=== PATIENT | female | born 1955 | race Caucasian/White ===

== ENCOUNTER 2019-12-27 06:43 | Inpatient (IN) | payer MEDICARE, OTHER ==
[~2019-12-27] VITALS: Ht 147.3 cm; Wt 91.6 kg
[2019-12-27] VITALS (23 sets, daily range): BP systolic 105–172; BP diastolic 46–79
--- NOTE | 2019-12-27 06:57 | NUR ---
PATIENT IS COVID POSITIVE OF 12/21/2019. NO FEVER, 99.3 FAHRENHEIT. PATIENT CAME TO ER BED 5 C/O SOB FROM HOME BIBRA. PATIENT IS 76% ON ROOM AIR. AND 94% ON 6L OF N/C. PATIENT IS AAOX4. NO SOB .BREATHING WITH EVEN RISE AND FALL OF CHEST. CONNECTED TO THE MONITOR.
--- NOTE | 2019-12-27 06:59 | NUR ---
PT DAUGHTER JOSLYN MICHAUD
--- NOTE | 2019-12-27 07:20 | NUR ---
BLOOD, CULTURES, FLU, MRSA, AND SINGH VIRUS SWAB COLLECTED AND SENT TO THE LAB.
--- NOTE | 2019-12-27 07:23 | NUR ---
RESPIRATORY AND RADIOLOGY CALLED FOR SERVICES.
[2019-12-27 07:25] LABS: BASOPHILS % (AUTO) 0.3 % (0.0-2.0); HEMATOCRIT 36 % (33-45); HEMOGLOBIN 11.9 g/dL (11.5-14.8); LYMPHOCYTES % (AUTO) 15.9 % (20.0-44.0); MEAN CORPUSCULAR HGB CONC 33 g/dl (31.0-36.0); MEAN CORPUSCULAR VOLUME 85 fL (82-100); MONOCYTES # (AUTO) 0.3 /CMM (0.1-1.30); MONOCYTES % (AUTO) 4.5 % (2.0-12.0); NEUTROPHILS % (AUTO) 79.3 % (43.0-81.0); PLATELET COUNT (AUTO) 265 /CMM (150-450); RED BLOOD CELL COUNT(AUTO) 4.17 MIL/uL (4.0-5.2); WHITE BLOOD COUNT (AUTO) 6.3 K/uL (4.3-11.0)
--- NOTE | 2019-12-27 07:28 | NUR ---
XRAY AT BEDSIDE
--- NOTE | 2019-12-27 07:32 | NUR ---
REPORT GIVEN TO PAULO LOONEY FOR CAMACHO.
[2019-12-27 07:34] LABS: CALCIUM, SERUM 8.3 mg/dL (8.5-10.1); CARBON DIOXIDE 25 mmol/L (21-32); CHLORIDE 95 mmol/L (98-107); CREATININE 0.6 mg/dL (0.6-1.3); GLUCOSE 154 mg/dL (74-106); POTASSIUM 3.7 mmol/L (3.5-5.1); SODIUM SERUM 134 mmol/L (136-145); UREA NITROGEN, BLOOD 11 mg/dL (7-18)
[2019-12-27 07:43] LABS: ABG BASE EXCESS -3.6 mmol/L; ABG PH 7.453 (7.350-7.450); ABG PO2 67.8 mmHg (75.0-100.0); AaDO2 185.2 mmHg; COHb 0.5 % (0.5-1.5); MetHb 0.2 % (0.0-1.5); O2Hb 92.3 % (94.0-97.0); SITE, ABG Left Radial; VENT MODE, BG 5l nc
[2019-12-27 07:46] LABS: ALANINE AMINOTRANSFERASE 107 U/L (12-78); ALBUMIN 2.7 g/dL (3.4-5.0); ALKALINE PHOSPHATASE 45 U/L (46-116); ASPARTATE AMINOTRANSFERASE 121 U/L (15-37); B-TYPE NATRIURETIC PEPTIDE 77 PG/ML (0-125); BILIRUBIN,TOTAL 0.5 mg/dL (0.2-1.0); TOTAL PROTEIN, SERUM 7.3 g/dL (6.4-8.2)
[2019-12-27 07:50] LABS: CREATINE KINASE, TOTAL 370 U/L (26-192); FERRITIN 916 ng/mL (8-388)
[2019-12-27] MEDS ORDERED: DEXAMETHASONE SOD PHOSPHATE 10 MG/ML VIAL IV ONE (08:00)
[2019-12-27] MEDS ORDERED: ESCI10TA PO (08:03)
[2019-12-27] MEDS ORDERED: AMYL1CAP56 PO (08:03)
[2019-12-27] MEDS ORDERED: FENO160T PO (08:03)
[2019-12-27] MEDS ORDERED: METF-440 PO (08:03)
[2019-12-27] MEDS ORDERED: ACET1TAB23 MT (08:03)
[2019-12-27] MEDS ORDERED: LORA-258 PO (08:03)
[2019-12-27] MEDS ORDERED: ROSU20TA32 PO (08:03)
[2019-12-27] MEDS ORDERED: TRAM50TA2 PO (08:03)
[2019-12-27] MEDS ORDERED: ERGO500014 PO (08:03)
[2019-12-27] MEDS ORDERED: AZIT500T4 PO (08:03)
[2019-12-27] MEDS ORDERED: DEXL30CA3 PO (08:03)
[2019-12-27] MEDS ORDERED: CLON0.1T PO (08:03)
[2019-12-27] MEDS ORDERED: APIX5TAB PO (08:03)
[2019-12-27] MEDS ORDERED: ALBU18HF2 IH (08:03)
[2019-12-27] MEDS ORDERED: DULO30CA52 PO (08:03)
[2019-12-27] MEDS ORDERED: ASPI-1169 PO (08:03)
[2019-12-27] MEDS ORDERED: MAGN400T26 PO (08:03)
[2019-12-27] MEDS ORDERED: CARV6.252 PO (08:03)
[2019-12-27] MEDS ORDERED: ZINC1CAP2 PO (08:03)
[2019-12-27] MEDS ORDERED: LOSA50TA39 PO (08:03)
[2019-12-27] MEDS ORDERED: INSU100V11 SQ (08:03)
[2019-12-27] MEDS ORDERED: TIOT18CA3 IH (08:05)
[2019-12-27] MEDS ORDERED: DEXAMETHASONE SOD PHOSPHATE 10 MG/ML VIAL ONE (08:05)
[2019-12-27] MEDS ORDERED: INSU300I SQ (08:05)
[2019-12-27] MEDS ORDERED: ASPI-1420 PO (08:05)
--- NOTE | 2019-12-27 08:19 | NUR ---
EPIC CALLED PHOTOGRAPHER SCIENTIFIC PAGED ITS ANDONIAN
--- NOTE | 2019-12-27 08:27 | NUR ---
RT PT CAME IN FOR SOB PLACED ON HIGH FLOW NC PER REJI, PT KEEPS REMOVING HIGH FLOW CANNULA COMPLAINING OF THE HIGH FLOW AND TEMPERATURE PLACED ON 34C 40L 80% SP02 > 94% Addendum: 12/27/19 at 0830 by PITER WILKINSON RT Amended: Links added.
[2019-12-27 08:30] LABS: C-REACTIVE PROTEIN 23.1 mg/dL (0.0-0.9)
--- NOTE | 2019-12-27 08:44 | NUR ---
nursing supp called for icu bed.
[2019-12-27 08:54] LABS: D-DIMER 1.56 mg/L(FEU (0.17-0.50)
--- NOTE | 2019-12-27 08:57 | NUR ---
room 262
--- NOTE | 2019-12-27 09:04 | NUR ---
report given to Юлия LOONEY for gm
--- NOTE | 2019-12-27 09:51 | NUR ---
wheeled patient via gurney accompanied by RN and emt in no distress. RN at bedside to assume care.
[2019-12-27] MEDS ORDERED: DEXAMETHASONE SOD PHOSPHATE 10 MG/ML VIAL IV SCH (10:00)
[2019-12-27] MEDS ORDERED: ENOXAPARIN SODIUM 40 MG/0.4 ML DISP.SYRIN SQ SCH (10:00)
--- NOTE | 2019-12-27 10:00 | NUR ---
RN OPENING NOTE Received patient awake from ER now situated in room 262. Patient is on NC 6L o2 sat @ 91%. Noted with effort in breathing. No co chest pain. RT placed high flow standby. Patient is AO x4 Hebrew speaking understand Hungarian. Patient has L Chest wall pacemaker A pacing at 80bpm. Has LAC #20 flushes well. Vital signs within normal limits. ER administered Decadron informed pharmacy. Per patient she is diabetic. Checked blood sugar 186. Informed Dr Dooley to order mild sliding scale. Order noted and carried out. Safety measures reinforced. Call light within reach. Will cont to monitor.
[2019-12-27] MEDS: FUROSEMIDE 40 MG/4 ML VIAL IV SCH ×3 (10:16→21:04)
[2019-12-27] MEDS ORDERED: Z GUARD REMEDY 2 OZ OINT TP PRN (10:30)
[2019-12-27] MEDS ORDERED: HYDROCODONE/APAP 5/325MG TABLET PO PRN (10:30)
[2019-12-27] MEDS ORDERED: ACETAMINOPHEN W/ CODEINE#3 1 EA TABLET PO PRN (10:30)
[2019-12-27] MEDS ORDERED: CLONIDINE HCL 0.1 MG TABLET PO PRN (10:30)
[2019-12-27] MEDS ORDERED: MAG HYDROX/AL HYDROX/SIMETH 30 ML UDC PO PRN (10:30)
[2019-12-27] MEDS ORDERED: MAGNESIUM HYDROXIDE 30 ML UDC PO PRN (10:30)
[2019-12-27] MEDS ORDERED: ZOLPIDEM TARTRATE 5 MG TABLET PO PRN (10:30)
[2019-12-27] MEDS ORDERED: TRAMADOL HCL 50 MG TABLET PO PRN (10:30)
[2019-12-27] MEDS ORDERED: ALBUTEROL SULFATE INH 18 GM HFA.AER.AD IH PRN ×2 (10:30→18:00)
--- NOTE | 2019-12-27 11:00 | NUR ---
CONVALESCENT PLASMA FORM SIGNED BY DR. PELEG. JORGENSEN INFORMED ABOUT BLOOD TRANSFUSION. GAVE CONSENT TO GIVE BLOOD TRANSFUSION. CONSENT IS SIGNED AND PLACED IN CHART.
[2019-12-27] MEDS: PANTOPRAZOLE 40 MG TABLET.DR PO SCH (11:46)
[2019-12-27] MEDS ORDERED: DEXTROSE 50%-WATER 50 ML DISP.SYRIN IV PRN (12:00)
[2019-12-27] MEDS ORDERED: REMDESIVIR (INVESTIGATIONAL) 200 MG in IV NS 0.9% 210 ML IV ONE (12:00)
--- NOTE | 2019-12-27 12:00 | NUR ---
JOE CATHETER PLACED TO PATIENT FOR I&O PATIENT IS ON LASIX. PROCEDURE TOLERATED WELL.
[2019-12-27] MEDS: BLOOD SUGAR DIAGNOSTIC 1 EACH STRIP IN SCH ×3 (12:53→21:30)
[2019-12-27] MEDS ORDERED: Medication Not On Formulary EA (Lipase/Protease/Amylase (Creon Dr 12,000 Units Capsule) PO SCH (13:00)
[2019-12-27] MEDS: LIPASE/PROTEASE/AMYLASE 1 EACH CAPSULE.DR PO SCH ×2 (13:00→17:13)
--- NOTE | 2019-12-27 13:30 | NUR ---
REMDESIVIR 1ST DOSE GIVEN VIA IV TOLERATED WELL NO SIGNS OF HYPOTENSION.
[2019-12-27] MEDS: IPRATROPIUM BROMIDE 14 GM INHALER (or 12.9 GM) IH SCH ×3 (14:16→23:50)
[2019-12-27] MEDS: INSULIN REGULAR, HUMAN 100 UNIT/ML 3 ML VIAL SQ PRN ×3 (14:17→21:31)
--- NOTE | 2019-12-27 15:58 | NUR ---
RT PLACED ON NC 6L PT REMOVING HIGH FLOW INFORMED DR SEE HIGH FLOW ON STBY Addendum: 12/27/19 at 1600 by PITER WILKINSON RT Amended: Links added.
--- NOTE | 2019-12-27 16:00 | NUR ---
FAMILY JOSLYN REQUESTED TO TALK TO MD ABOUT PATIENT'S CONDITION. PAGED AND LEFT A MESSAGE TO DR. RUCKER.
[2019-12-27] MEDS: LOSARTAN POTASSIUM 50 MG TABLET PO SCH (16:55)
[2019-12-27] MEDS: APIXABAN 5 MG TABLET PO SCH (16:56)
[2019-12-27] MEDS: METFORMIN 500 MG TABLET PO SCH (16:56)
--- NOTE | 2019-12-27 17:40 | NUR ---
SBP AT 177MMHG JUST ADMINISTERED COZAAR. WILL CONT TO MONITOR.
--- NOTE | 2019-12-27 18:45 | NUR ---
RN CLOSING NOTE Patient in bed resting sitting HOB elevated. On NC 6L with humidifier o2 sat 90%. AO x4 able to communicate needs. Tele monitor reading A pacing 80s. Pritchett catheter drained 100ml. ROSANGELA Midline on TKO flushes well and LAC #20 flushed well. All due meds given. All needs met. Kept clean and comfortable. No co pain or discomort. Safety measures maintained. Call light within reach. Will endorse to overnight associate nurse for gm.
--- NOTE | 2019-12-27 19:15 | NUR ---
RECEIVED PT ON BED AWAKE WATCHING TV, A/O X 3ON O2 VIA NC @ 6L SPO2 91 % NO SOB NOTED, TELE MONITOR READS A PACING 100% HR 70'S, HAVE ROSANGELA MIDLINE PATENT AND FLUSHED, CLEAN AND DRY, JOE CATHETER DRAINING YELLOW URINE VIA GRAVITY,ON DROPLET ISOLATION FOR COVID POSITIVE, SAFETY MEASURE MAINTAINED SIDE RAILS UP X2 BED PN LOWEST POSITION AND LOCKED CALL LIGHT WITHIN REACH WILL CONT TO MONITOR
[2019-12-27] MEDS: ATORVASTATIN 40 MG TABLET PO SCH (21:03)
[2019-12-27] MEDS: CARVEDILOL 6.25 MG TABLET PO SCH (21:04)
--- NOTE | 2019-12-27 21:34 | NUR ---
PT SPO2 84% @ 6L O2 VIA NC CANNULA, OFFER HIGH FLOW BUT PT REFUSED, AGREE WITH SIMPLE MASK AT 6L ALSO SPO2 NOW AT 90% WILL CONT TO MONITOR
[2019-12-28] VITALS (34 sets, daily range): BP systolic 92–165; BP diastolic 30–99
--- NOTE | 2019-12-28 01:33 | NUR ---
CONVALESCENT PLASMA RECEIVED FROM LAB, CHECKED AND VERIFIED, START TRANSFUSION TO THE PT WITH INITIAL V/S TEMP 98.3 HR 70 RR 22 BP 116/79 PT IS AWAKE A/O X 4 SPO2 92 % WILL CONT TO MONITOR
--- NOTE | 2019-12-28 01:49 | NUR ---
CONVALESCENT PLASMA CURRENTLY TRANSFUSING WITH LATEST V/S 98.3F, 121/64 HR 70 RR 38 SPO2 92% NO SIGN AND SYMPTOMS OF TRANSFUSION REACTION
--- NOTE | 2019-12-28 03:00 | NUR ---
CONVALESCENT PLASMA STILL TRANSFUSING WITH LATEST V/S 98.2F 114/74 HR 70 SPO2 91% NO SIGN AND SYMPTOMS OF SOB OR TRANSFUSION REACTION WILL CONT TO MONITOR THE PT
--- NOTE | 2019-12-28 03:36 | NUR ---
CONVALESCENT PLASMA TRANSFUSION COMPLETED PT IS ASLEEP EASY TO WAKE UP SPO2 92% LATEST V/S 98.3F, 118/67 HR 70 RR 37, NO ANY SIGN OF SOB OR TRANSFUSION REACTION WILL CONT TO MONITOR
[2019-12-28 04:36] LABS: BASOPHILS % (AUTO) 0.7 % (0.0-2.0); HEMATOCRIT 33 % (33-45); HEMOGLOBIN 10.7 g/dL (11.5-14.8); LYMPHOCYTES # (AUTO) 0.6 /CMM (0.8-4.8); LYMPHOCYTES % (AUTO) 8.9 % (20.0-44.0); MEAN CORPUSCULAR HGB CONC 33 g/dl (31.0-36.0); MEAN CORPUSCULAR VOLUME 85 fL (82-100); MONOCYTES # (AUTO) 0.4 /CMM (0.1-1.30); MONOCYTES % (AUTO) 5.3 % (2.0-12.0); NEUTROPHILS # (AUTO) 5.7 /CMM (1.8-8.9); NEUTROPHILS % (AUTO) 85.1 % (43.0-81.0); PLATELET COUNT (AUTO) 271 /CMM (150-450); RED BLOOD CELL COUNT(AUTO) 3.83 MIL/uL (4.0-5.2); WHITE BLOOD COUNT (AUTO) 6.7 K/uL (4.3-11.0)
--- NOTE | 2019-12-28 04:45 | NUR ---
PT SPO2 GO DOWN TO 85%, INCREASE O2 VIA MASK TO 8L SPO2 NOW 91-94% WILL CONT TO MONITOR THE PT
[2019-12-28 04:48] LABS: CALCIUM, SERUM 8.2 mg/dL (8.5-10.1); CREATININE 0.7 mg/dL (0.6-1.3); MAGNESIUM 2.1 mg/dL (1.8-2.4); PHOSPHORUS 4.1 mg/dL (2.5-4.9); POTASSIUM 3.5 mmol/L (3.5-5.1)
[2019-12-28 05:05] LABS: ALBUMIN 2.6 g/dL (3.4-5.0); BILIRUBIN,DIRECT 0.2 mg/dL (0.0-0.2); BILIRUBIN,TOTAL 0.5 mg/dL (0.2-1.0)
[2019-12-28] MEDS: IPRATROPIUM BROMIDE 14 GM INHALER (or 12.9 GM) IH SCH ×3 (05:47→17:37)
--- NOTE | 2019-12-28 07:21 | NUR ---
PT ON BED AWAKE A/O X 4 NO SIGNIFICANT CHANGES ON CONDITION NOTED STILL ON A PACING 100% VIA BEDSIDE MONITOR HR 70'S ALL NEEDS ATTENDED DROPLET ISOLATION MAINTAINED SAFETY MEASURE OBSERVED BED ON LOWEST POSITION AND LOCKED SIDE RAILS UP X2 CALL LIGHT WITHIN REACH WILL ENDORSED TO AM SHIFT NURSE
[2019-12-28] MEDS ORDERED: Medication Not On Formulary EA (Dexlansoprazole (Dexilant) 30 MG) PO SCH (07:30)
--- NOTE | 2019-12-28 07:30 | NUR ---
CONSULTING SOFTWARE ENGINEER INITIAL NOTE RECEIVED PATIENT AWAKE, ALERT AND ORIENTED. SKIN WARM AND DRY TO TOUCH. PATIENT WITH SOB ON 8LPM VIA SIMPLE MASK. ON TELE MONITOR A PACING. DENIES PAIN OR DISCOMFORT AT THIS TIME. F/C PATENT AND DRAINING BY GRAVITY. HOB ELEVATED. SIDE RAILS UP AND LOCKED. BED KEPT AT LOWEST POSITION. CALL LIGHT IN REACH. WILL CONTINUE TO MONITOR.
[2019-12-28] MEDS: BLOOD SUGAR DIAGNOSTIC 1 EACH STRIP IN SCH ×4 (08:06→21:08)
[2019-12-28] MEDS: LIPASE/PROTEASE/AMYLASE 1 EACH CAPSULE.DR PO SCH ×3 (08:07→17:04)
[2019-12-28] MEDS: INSULIN REGULAR, HUMAN 100 UNIT/ML 3 ML VIAL SQ PRN ×4 (08:07→21:09)
[2019-12-28] MEDS: METFORMIN 500 MG TABLET PO SCH ×2 (08:08→17:05)
[2019-12-28] MEDS: DEXAMETHASONE SOD PHOSPHATE 10 MG/ML VIAL IV SCH (08:08)
[2019-12-28] MEDS: ZINC SULFATE 220 MG CAPSULE PO SCH (08:08)
[2019-12-28] MEDS: ESCITALOPRAM OXALATE (10 MG) 10 MG TABLET PO SCH (08:08)
[2019-12-28] MEDS: PANTOPRAZOLE 40 MG TABLET.DR PO SCH (08:08)
[2019-12-28] MEDS: ASPIRIN EC 81 MG TABLET.DR PO SCH (08:08)
[2019-12-28] MEDS: CARVEDILOL 6.25 MG TABLET PO SCH ×2 (08:08→20:57)
[2019-12-28] MEDS: MAGNESIUM OXIDE 400 MG TABLET PO SCH (08:08)
[2019-12-28] MEDS: DULOXETINE HCL 30 MG CAPSULE.DR PO SCH (08:08)
[2019-12-28] MEDS: APIXABAN 5 MG TABLET PO SCH ×2 (08:09→17:04)
[2019-12-28] MEDS: LOSARTAN POTASSIUM 50 MG TABLET PO SCH ×2 (08:09→17:00)
--- NOTE | 2019-12-28 08:15 | NUR ---
ROSE GRADING SUPERVISOR NOTE SEEN AND EXAMINED BY DR RUCKER, DAUGHTER JOSLYN GIVEN UPDATES BY DR. RUCKER
--- NOTE | 2019-12-28 08:29 | NUR ---
RAIL EXPRESS CLERK NOTE PATIENT REQUESTED FOR COUGH MEDICINE, INFORMED DR SEE, RECEIVED ORDERS FOR ROBITUSSIN DM Q6 PRN. WILL CONTINUE TO MONITOR.
--- NOTE | 2019-12-28 08:47 | NUR ---
FRENCH LECTURER NOTE PATIENT REQUESTED FOR PUREED DIET, STATED SHE HAS BAD TEETH. NOTED
[2019-12-28] MEDS ORDERED: Medication Not On Formulary EA (Fenofibrate 160 MG) PO SCH (09:00)
[2019-12-28] MEDS: GUAIFENESIN/D-METHORPHAN HB 5 ML UDC PO PRN (09:09)
[2019-12-28] MEDS: LORAZEPAM 0.5 MG TABLET PO PRN (09:09)
--- NOTE | 2019-12-28 09:33 | NUR ---
PROMOTIONS PRODUCER NOTE SPOKE WITH DAUGHTER JOSLYN, PER DAUGHTER REQUESTED MEDICAL RECORDS OF HER MOM. MEDICAL RECORDS ALETA INFORMED. SHE WILL SPEAK WITH DAUGHTER. PATIENT GAVE VERBAL CONSENT TO GIVE RECORDS TO HER DAUGHTER.
--- NOTE | 2019-12-28 11:00 | NUR ---
LEGAL AIDE NOTE PATIENT ASSISTED TO BEDSIDE COMMODE, RECOMMENDED PATIENT TO USE BEDPAN DUE TO HER RESPIRATORY STATUS. PATIENT STILL INSISTED TO USED BEDSIDE COMMODE AND HAD BOWEL MOVEMENT. PATIENT CLEANED AND ASSISTED BACK TO BED. ON 8LPM SIMPLE MASK WITH SPO2 85-88%. WILL CONTINUE TO MONITOR.
[2019-12-28] MEDS ORDERED: REMDESIVIR (INVESTIGATIONAL) 100 MG in IV NS 0.9% 230 ML IV SCH (12:00)
--- NOTE | 2019-12-28 14:30 | NUR ---
PATENT LAWYER NOTE PATIENT SIDE LYING SLEEPING, AROUSABLE, PER PATIENT, SHE WOULD LIKE REST. RECEIVED CALL FROM DAUGHTER JOSLYN AND INFORMED HER, HER MOTHER WOULD LIKE TO REST AT THIS TIME. UPDATES GIVEN.
--- NOTE | 2019-12-28 17:10 | NUR ---
LEAD CASHIER NOTE WOKE PATIENT UP FOR DINNER, PATIENT STATES SHE FEELS BETTER WITH SLEEP. PATIENT ON 6LPM O2 VIA NC. NO DISTRESS NOTED. WILL CONTINUE TO MONITOR.
--- NOTE | 2019-12-28 17:47 | NUR ---
COAL TRIMMER NOTE CONTINUITY OF CARE ENDORSED TO RN ALIYAH
--- NOTE | 2019-12-28 19:46 | NUR ---
ENTRY DRIVER OPERATOR. INITIAL ASSESSMENT. RECEIVED THE PT REST ON THE BED. AWAKE, ALERT, FOLLOW COMMANDS. AERIAL GUNNER SUPERINTENDENT SHOWING A PACING. HOB ELEVATED. IVLT UPPER ARM MID LINE. SALINE LOCK. WILL CONTINUE TO MONITOR VITALS.
[2019-12-28] MEDS: ATORVASTATIN 40 MG TABLET PO SCH (20:57)
--- NOTE | 2019-12-28 21:43 | NUR ---
agricultural engineering teacher. all meds scanned
--- NOTE | 2019-12-28 23:41 | NUR ---
agricultural equipment sales engineer, remaining same oxygen tolerated well. sat 94%, will continue to monitor
[2019-12-29] VITALS (18 sets, daily range): BP systolic 77–135; BP diastolic 46–77
--- NOTE | 2019-12-29 00:27 | NUR ---
research agricultural engineer. remaining same oxygen on. sat 93%, will continue to monitor,
--- NOTE | 2019-12-29 02:55 | NUR ---
curriculum manager. remaining same oxygen on, no new changes, will continue to monitor
[2019-12-29] MEDS: IPRATROPIUM BROMIDE 14 GM INHALER (or 12.9 GM) IH SCH ×4 (03:19→18:09)
[2019-12-29 04:31] LABS: BASOPHILS % (AUTO) 0.5 % (0.0-2.0); EOSINOPHILS % (AUTO) 0.4 % (0.0-6.0); HEMATOCRIT 32 % (33-45); HEMOGLOBIN 10.7 g/dL (11.5-14.8); LYMPHOCYTES # (AUTO) 0.6 /CMM (0.8-4.8); LYMPHOCYTES % (AUTO) 14.6 % (20.0-44.0); MEAN CORPUSCULAR HGB CONC 33 g/dl (31.0-36.0); MEAN CORPUSCULAR VOLUME 85 fL (82-100); MONOCYTES # (AUTO) 0.4 /CMM (0.1-1.30); MONOCYTES % (AUTO) 9.3 % (2.0-12.0); NEUTROPHILS # (AUTO) 2.9 /CMM (1.8-8.9); NEUTROPHILS % (AUTO) 75.2 % (43.0-81.0); PLATELET COUNT (AUTO) 312 /CMM (150-450); RED BLOOD CELL COUNT(AUTO) 3.78 MIL/uL (4.0-5.2); WHITE BLOOD COUNT (AUTO) 3.9 K/uL (4.3-11.0)
[2019-12-29 04:39] LABS: ALBUMIN 2.4 g/dL (3.4-5.0); BILIRUBIN,DIRECT 0.2 mg/dL (0.0-0.2); BILIRUBIN,TOTAL 0.5 mg/dL (0.2-1.0); CALCIUM, SERUM 8.2 mg/dL (8.5-10.1); CREATININE 0.6 mg/dL (0.6-1.3); POTASSIUM 3.7 mmol/L (3.5-5.1); TOTAL PROTEIN, SERUM 6.7 g/dL (6.4-8.2)
--- NOTE | 2019-12-29 06:47 | NUR ---
manager nicu. pt slept well during shift. no new changes. afebrile. will continue to monitor vitals.
--- NOTE | 2019-12-29 07:30 | NUR ---
SENIOR PRODUCTION PLANNER INITIAL NOTE RECEIVED PATIENT AWAKE ALERT AND ORIENTED. C/O 3/10 BACK PAIN. NO DISTRESS NOTED, ON 6LPMO2 VIA NC. SKIN WARM AND DRY TO TOUCH. ON MONITOR APACING. F/C NOTED, DRAINING BY GRAVITY. ROSANGELA MIDLINE PATENT AND INTACT. HOB ELEVATED. ISOLATION PRECAUTIONS OBSERVED. SIDE RAILS UP AND LOCKED. BED KEPT AT LOWEST POSITION. CALL LIGHT IN REACH. WILL CONTINUE TO MONITOR.
[2019-12-29] MEDS: PANTOPRAZOLE 40 MG TABLET.DR PO SCH (07:31)
[2019-12-29] MEDS: LIPASE/PROTEASE/AMYLASE 1 EACH CAPSULE.DR PO SCH ×3 (07:32→17:09)
[2019-12-29] MEDS: GUAIFENESIN/D-METHORPHAN HB 5 ML UDC PO PRN (07:32)
[2019-12-29] MEDS: BLOOD SUGAR DIAGNOSTIC 1 EACH STRIP IN SCH ×4 (07:56→21:05)
[2019-12-29] MEDS: DEXAMETHASONE SOD PHOSPHATE 10 MG/ML VIAL IV SCH (08:38)
[2019-12-29] MEDS: ZINC SULFATE 220 MG CAPSULE PO SCH (08:38)
[2019-12-29] MEDS: LORAZEPAM 0.5 MG TABLET PO PRN (08:38)
[2019-12-29] MEDS: ACETAMINOPHEN 325 MG TABLET PO PRN (08:38)
[2019-12-29] MEDS: ASPIRIN EC 81 MG TABLET.DR PO SCH (08:38)
[2019-12-29] MEDS: DULOXETINE HCL 30 MG CAPSULE.DR PO SCH (08:39)
[2019-12-29] MEDS: APIXABAN 5 MG TABLET PO SCH ×2 (08:39→17:11)
[2019-12-29] MEDS: METFORMIN 500 MG TABLET PO SCH ×2 (08:39→17:10)
[2019-12-29] MEDS: LOSARTAN POTASSIUM 50 MG TABLET PO SCH ×2 (08:40→17:10)
[2019-12-29] MEDS: MAGNESIUM OXIDE 400 MG TABLET PO SCH (08:40)
[2019-12-29] MEDS: ESCITALOPRAM OXALATE (10 MG) 10 MG TABLET PO SCH (08:40)
[2019-12-29] MEDS: CARVEDILOL 6.25 MG TABLET PO SCH ×2 (08:40→20:56)
[2019-12-29 10:43] LABS: ABG BASE EXCESS 4.1 mmol/L; ABG OXYGEN SATURATION 95.4 % (92.0-98.5); ABG PCO2 41.7 mmHg (35.0-45.0); ABG PH 7.452 (7.350-7.450); ABG PO2 77.5 mmHg (75.0-100.0); AaDO2 188.7 mmHg; COHb 0.3 % (0.5-1.5); MetHb 0.3 % (0.0-1.5); O2Hb 94.8 % (94.0-97.0); SITE, ABG Left Brachial; VENT MODE, BG nasal cannula
[2019-12-29] MEDS: INSULIN REGULAR, HUMAN 100 UNIT/ML 3 ML VIAL SQ PRN ×3 (12:07→21:24)
[2019-12-29] MEDS: ONDANSETRON HCL/PF 4 MG/2 ML VIAL IVP PRN (12:16)
--- NOTE | 2019-12-29 16:40 | NUR ---
RECEIVED PATIENT VIA GURNEY ON 6 L OF NASAL CANNULA WITH NO SIGNS OF DISTRESS, NO COMPLAIN OF PAIN AT THIS MOMENT VITAL SIGNS WITHIN NORMAL LIMIT AND AFEBRILE. MID LINE L UA INTACT. JOE CATH INTACT. TELE MONITOR. ORIENTED PATIENT TO HER ROOM. SAFETY MEASURES ARE APPLIED BED IS IN LOW AND LOCKED POSITION, SIDE RAILS UP X 2. CALL LIGHT WITHIN REACH, WILL CONTINUE TO MONITOR.
--- NOTE | 2019-12-29 16:44 | NUR ---
ICU NR NOTE PATIENT TRANSFERRED TO ROOM 205 ACLS PROTOCOL. ALL BELONGINGS WITH PATIENT. REPORT GIVEN TO AURE BROWNE.
--- NOTE | 2019-12-29 19:33 | NUR ---
ADDICTION SPECIALIST CLOSING NOTES PATIENT A/O X 4 ON 6L OF HUMIDIFIER NASAL CANNULA WITH NO SIGNS OF DISTRESS, NO COMPLAIN OF PAIN AT THIS MOMENT. MID LINE L UA INTACT. JOE CATH INTACT. TELE MONITOR SR 70. PATIENT KEPT CLEAN AND DRY. ALL NEEDS, CARE, TREATMENT AND MEDICATIONS ADMINISTERED ANTICIPATED PER ORDER. SAFETY MEASURES ARE APPLIED BED IS IN LOW AND LOCKED POSITION, SIDE RAILS UP X 2. CALL LIGHT WITHIN REACH, WILL ENDORSE TO THE NEXT ETCHER APPRENTICE.
--- NOTE | 2019-12-29 20:00 | NUR ---
TELE/RN OPENING NOTE Patient awake in bed A/O x4, bedrest. Breathing even, mild laboring , on NC 6 LPM humidifer. No acute distress noted. Tele monitor reading sinus rhythm. Skin warm, pink, dry, intact, appropriate for ethnicity. CRP <3seconds. Tongue midline, no tracheal deviation. No JVD. Abdomen round, soft, non-tender. BS hypoactive. Pritchett catheter in place, intact, draining clear, yellow urine. IV ROSANGELA midline, patent intact. No redness or infiltration. Bed in low position, wheels locked, side rails up x2, call light within reach.
[2019-12-29] MEDS: ATORVASTATIN 40 MG TABLET PO SCH (21:04)
[2019-12-30] VITALS: BP 137/78
[2019-12-30] MEDS: IPRATROPIUM BROMIDE 14 GM INHALER (or 12.9 GM) IH SCH ×5 (00:18→23:50)
[2019-12-30 05:30] VITALS: BP 111/71
--- NOTE | 2019-12-30 06:03 | NUR ---
TELE/RN CLOSING NOTE Patient awake in bed A/O x4, bedrest. Breathing even, mild laboring , on NC 6 LPM humidifer. No acute distress noted. Tele monitor reading sinus rhythm. Pritchett catheter in place, intact, draining clear, yellow urine, 1200 ml. No bowel movement. IV ROSANGELA midline, patent intact. No redness or infiltration. Bed in low position, wheels locked, side rails up x2, call light within reach.
[2019-12-30 06:19] LABS: BASOPHILS # (AUTO) 0.1 /CMM (0.0-0.2); BASOPHILS % (AUTO) 1.4 % (0.0-2.0); EOSINOPHILS % (AUTO) 1.2 % (0.0-6.0); HEMATOCRIT 34 % (33-45); HEMOGLOBIN 11.5 g/dL (11.5-14.8); LYMPHOCYTES # (AUTO) 0.8 /CMM (0.8-4.8); LYMPHOCYTES % (AUTO) 15.8 % (20.0-44.0); MEAN CORPUSCULAR HGB CONC 34 g/dl (31.0-36.0); MEAN CORPUSCULAR VOLUME 85 fL (82-100); MONOCYTES # (AUTO) 0.5 /CMM (0.1-1.30); MONOCYTES % (AUTO) 10.1 % (2.0-12.0); NEUTROPHILS # (AUTO) 3.6 /CMM (1.8-8.9); NEUTROPHILS % (AUTO) 71.5 % (43.0-81.0); PLATELET COUNT (AUTO) 365 /CMM (150-450); RED BLOOD CELL COUNT(AUTO) 4.05 MIL/uL (4.0-5.2); WHITE BLOOD COUNT (AUTO) 5.1 K/uL (4.3-11.0)
[2019-12-30] MEDS: INSULIN REGULAR, HUMAN 100 UNIT/ML 3 ML VIAL SQ PRN ×4 (06:32→22:11)
[2019-12-30] MEDS: BLOOD SUGAR DIAGNOSTIC 1 EACH STRIP IN SCH ×4 (06:32→22:13)
[2019-12-30] MEDS: PANTOPRAZOLE 40 MG TABLET.DR PO SCH (06:33)
[2019-12-30 06:49] LABS: ALBUMIN 2.5 g/dL (3.4-5.0); BILIRUBIN,DIRECT 0.2 mg/dL (0.0-0.2); BILIRUBIN,TOTAL 0.5 mg/dL (0.2-1.0); CALCIUM, SERUM 8.6 mg/dL (8.5-10.1); CREATININE 0.8 mg/dL (0.6-1.3); POTASSIUM 3.7 mmol/L (3.5-5.1); TOTAL PROTEIN, SERUM 6.8 g/dL (6.4-8.2)
--- NOTE | 2019-12-30 07:00 | NUR ---
PNEUMATIC TESTER OPENING NOTES RECEIVED PT AWAKE IN BED AT THIS TIME. AOX4. PT ABLE TO VERBALIZE NEEDS. NO SOB NOTED, NO S/S OF ANY ACUTE DISTRESS NOTED. NO C/O PAIN AT THIS TIME. RESPIRATIONS ARE EVEN AND UNLABORED WITH EQUAL RISE AND FALL IN CHEST. PT NOTED ON 4LPM OXYGEN VIA NC. ROSANGELA MIDLINE, INTACT, PATENT AND FLUSHING WELL. JOE CATHETER IN PLACE, DRAINING TO GRAVITY, CLEAR YELLOW URINE OUTPUT. SAFETY PRECAUTION IN PLACE AND MAINTAINED AT ALL TIMES. BED IN LOWEST LOCKED POSITION, HOB ELEVATED, SIDE RAILS UP X 2, CALL LIGHT WITHIN REACH. WILL CONTINUE TO MONITOR
[2019-12-30] MEDS: LIPASE/PROTEASE/AMYLASE 1 EACH CAPSULE.DR PO SCH ×3 (07:50→17:33)
[2019-12-30 08:00] VITALS: BP 123/77
[2019-12-30] MEDS: CARVEDILOL 6.25 MG TABLET PO SCH ×2 (08:33→22:13)
[2019-12-30] MEDS: ASPIRIN EC 81 MG TABLET.DR PO SCH (08:33)
[2019-12-30] MEDS: ZINC SULFATE 220 MG CAPSULE PO SCH (08:33)
[2019-12-30] MEDS: DULOXETINE HCL 30 MG CAPSULE.DR PO SCH (08:33)
[2019-12-30] MEDS: MAGNESIUM OXIDE 400 MG TABLET PO SCH (08:33)
[2019-12-30] MEDS: LOSARTAN POTASSIUM 50 MG TABLET PO SCH ×2 (08:34→16:36)
[2019-12-30] MEDS: METFORMIN 500 MG TABLET PO SCH ×2 (08:34→16:36)
[2019-12-30] MEDS: ESCITALOPRAM OXALATE (10 MG) 10 MG TABLET PO SCH (08:34)
[2019-12-30] MEDS: DEXAMETHASONE SOD PHOSPHATE 10 MG/ML VIAL IV SCH (08:35)
[2019-12-30] MEDS: ACETAMINOPHEN 325 MG TABLET PO PRN (08:37)
--- NOTE | 2019-12-30 08:40 | NUR ---
PT C/O ACHING LEFT ABDOMINAL PAIN OF 3/. VS WNL. PER PT REQUEST, ACETAMINOPHEN 650MG PO Q6HR PRN FOR MILD PAIN WAS ADMINISTERED AT THIS TIME. WILL CONTINUE TO MONITOR
[2019-12-30] MEDS: APIXABAN 5 MG TABLET PO SCH ×2 (08:54→16:36)
--- NOTE | 2019-12-30 10:20 | NUR ---
JOSLYN, PT's DAUGHTER ([phone]) CALLED AND WAS UPDATED. JOSLYN REQUESTED FOR DOCTOR TO GET BACK TO HER. DOCTOR RUCKER MADE AWARE. WILL CONTINUE TO MONITOR
--- NOTE | 2019-12-30 18:57 | NUR ---
FORESTRY EXTENSION SPECIALIST CLOSING NOTES PT AWAKE IN BED AT THIS. PT REMAINED STABLE THROUGHOUT SHIFT. PT KEPT CLEAN AND DRY. ALL CARE, NEEDS, MEDICATIONS, TREATMENT, AND PAIN MANAGEMENT ADMINISTERED ANTICIPATED PER ORDER. JOE CATHETER CARE PROVIDER. SAFETY PRECAUTION IN PLACE AND MAINTAINED AT ALL TIMES. BED IN LOWEST LOCKED POSITION, HOB ELEVATED, SIDE RAILS UP X 2, CALL LIGHT WITHIN REACH.
--- NOTE | 2019-12-30 19:10 | NUR ---
HEALTH AND WELLNESS DIRECTOR OPENING NOTES: RECEIVED PATIENT IN BED, AWAKE. A/O X4. NO S/S OF DISTRESS NOTED. NO COMPLAIN OF PAIN. HOB ELEVATED AT ALL TIMES. CALL LIGHT WITHIN REACH. BED ALARM ON. BED IN LOWEST AND LOCKED POSITION. WITH SCD'S ON BOTH LEGS ON. WITH JOE CATHETER INTACT, DRAINING A CLEAR YELLOW URINE OUTPUT. PATIENT'S OWN CANE AT THE BEDSIDE.
--- NOTE | 2019-12-30 19:21 | NUR ---
ENDORSED TP TIME STUDY OBSERVER NURSE FOR CAMACHO
[2019-12-30 20:00] VITALS: BP 113/63
[2019-12-30] MEDS: ATORVASTATIN 40 MG TABLET PO SCH (22:12)
[2019-12-31] VITALS: BP 131/68
[2019-12-31 04:00] VITALS: BP 114/60
[2019-12-31 06:15] LABS: BASOPHILS % (AUTO) 0.3 % (0.0-2.0); EOSINOPHILS % (AUTO) 1.9 % (0.0-6.0); HEMATOCRIT 35 % (33-45); HEMOGLOBIN 11.6 g/dL (11.5-14.8); LYMPHOCYTES # (AUTO) 1.3 /CMM (0.8-4.8); LYMPHOCYTES % (AUTO) 24.1 % (20.0-44.0); MEAN CORPUSCULAR HGB CONC 33 g/dl (31.0-36.0); MEAN CORPUSCULAR VOLUME 85 fL (82-100); MONOCYTES # (AUTO) 0.5 /CMM (0.1-1.30); MONOCYTES % (AUTO) 10.3 % (2.0-12.0); NEUTROPHILS # (AUTO) 3.3 /CMM (1.8-8.9); NEUTROPHILS % (AUTO) 63.4 % (43.0-81.0); PLATELET COUNT (AUTO) 372 /CMM (150-450); RED BLOOD CELL COUNT(AUTO) 4.15 MIL/uL (4.0-5.2); WHITE BLOOD COUNT (AUTO) 5.2 K/uL (4.3-11.0)
[2019-12-31 06:40] LABS: ALBUMIN 2.5 g/dL (3.4-5.0); BILIRUBIN,DIRECT 0.2 mg/dL (0.0-0.2); BILIRUBIN,TOTAL 0.5 mg/dL (0.2-1.0); CALCIUM, SERUM 8.5 mg/dL (8.5-10.1); CREATININE 0.7 mg/dL (0.6-1.3); POTASSIUM 3.7 mmol/L (3.5-5.1); TOTAL PROTEIN, SERUM 6.7 g/dL (6.4-8.2)
[2019-12-31] MEDS: IPRATROPIUM BROMIDE 14 GM INHALER (or 12.9 GM) IH SCH ×3 (06:52→18:00)
[2019-12-31] MEDS: INSULIN REGULAR, HUMAN 100 UNIT/ML 3 ML VIAL SQ PRN ×4 (07:10→21:37)
[2019-12-31] MEDS: BLOOD SUGAR DIAGNOSTIC 1 EACH STRIP IN SCH ×4 (07:10→21:37)
--- NOTE | 2019-12-31 07:11 | NUR ---
blood sugar [id number], no insulin given.
--- NOTE | 2019-12-31 07:40 | NUR ---
Patient is awake alert and oriented . On 4 L oxygen tolerating well . Patient is ambulatory with assistance. Patient denies any pain, SOB or difficulty breathing. Safety precautions observed and call light within reach. Will continue to monitor
[2019-12-31 08:00] VITALS: BP 124/72
[2019-12-31] MEDS: PANTOPRAZOLE 40 MG TABLET.DR PO SCH (08:51)
[2019-12-31] MEDS: CARVEDILOL 6.25 MG TABLET PO SCH ×2 (08:51→21:22)
[2019-12-31] MEDS: ASPIRIN EC 81 MG TABLET.DR PO SCH (08:51)
[2019-12-31] MEDS: DEXAMETHASONE SOD PHOSPHATE 10 MG/ML VIAL IV SCH (08:51)
[2019-12-31] MEDS: DULOXETINE HCL 30 MG CAPSULE.DR PO SCH (08:51)
[2019-12-31] MEDS: METFORMIN 500 MG TABLET PO SCH ×2 (08:51→17:04)
[2019-12-31] MEDS: LIPASE/PROTEASE/AMYLASE 1 EACH CAPSULE.DR PO SCH ×3 (08:52→17:05)
[2019-12-31] MEDS: ZINC SULFATE 220 MG CAPSULE PO SCH (08:52)
[2019-12-31] MEDS: LOSARTAN POTASSIUM 50 MG TABLET PO SCH ×2 (08:52→17:04)
[2019-12-31] MEDS: ESCITALOPRAM OXALATE (10 MG) 10 MG TABLET PO SCH (08:52)
[2019-12-31] MEDS: MAGNESIUM OXIDE 400 MG TABLET PO SCH (08:52)
[2019-12-31] MEDS: APIXABAN 5 MG TABLET PO SCH ×2 (09:00→17:06)
[2019-12-31 12:00] VITALS: BP 130/65
--- NOTE | 2019-12-31 12:30 | NUR ---
Spoke with pt's daughter ; updated with plan of care. Verbalized understanding
--- NOTE | 2019-12-31 18:35 | NUR ---
Patient is resting in bed. Alert and orientedx3 , able to ambulate with assistance. F/C in place draining yellow clear urine. Oxygen flow decreased to 2L and patient tolerated well, saturation above 95%.Patient denies pain, SOB or other discomfort but complains of weakness. Pt slept most of the day. On Tele A-pacing 70-80's.ROSANGELA intact , flushing well. All needs attended. Safety precautions in place. Will endorse to next shift for CAMACHO
--- NOTE | 2019-12-31 19:36 | NUR ---
BREAD DOUGH MIXER OPENING NOTES PATIENT AWAKE IN BED. A/OX4, PRIMARY LANGUAGE [place] ISLANDER, ABLE TO SPEAK/UNDERSTAND A LITTLE ITALIAN. ON 2L NC; NO S/S OF ACUTE RESPIRATORY DISTRESS; BREATHING IS EVEN AND UNLABORED. NO C/O PAIN AT THIS TIME. TELE MONITOR READING A-PACING, HEART RATE 70. MIDLINE PRESENT ON LEFT UPPER ARM, INTACT & PATENT, HEP LOCKED AT THIS TIME. CONTACT/DROPLET PRECAUTIONS IN PLACE FOR POSITIVE COVID 19. SAFETY MEASURES IN PLACE AND PATIENT'S NEEDS MET. BED LOCKED, HOB ELEVATED, SIDE RAILS X2, CALL LIGHT WITHIN REACH. WILL CONTINUE TO MONITOR.
[2019-12-31 20:45] VITALS: BP 128/73
[2019-12-31 20:46] VITALS: BP 128/73
[2019-12-31] MEDS: ATORVASTATIN 40 MG TABLET PO SCH (21:21)
--- NOTE | 2019-12-31 21:38 | NUR ---
POWER WOOD SAWYER NOTES PATIENT'S BLOOD GLUCOSE 174. PATIENT REFUSED 3 UNITS OF REGULAR INSULIN COVERAGE.
[2020-01-01] VITALS (8 sets, daily range): BP systolic 119–137; BP diastolic 59–77
[2020-01-01] MEDS: IPRATROPIUM BROMIDE 14 GM INHALER (or 12.9 GM) IH SCH ×4 (00:36→17:11)
[2020-01-01 06:29] LABS: BASOPHILS % (AUTO) 0.6 % (0.0-2.0); EOSINOPHILS % (AUTO) 2.3 % (0.0-6.0); HEMATOCRIT 36 % (33-45); HEMOGLOBIN 11.7 g/dL (11.5-14.8); LYMPHOCYTES # (AUTO) 1.2 /CMM (0.8-4.8); LYMPHOCYTES % (AUTO) 20.6 % (20.0-44.0); MEAN CORPUSCULAR HGB CONC 33 g/dl (31.0-36.0); MEAN CORPUSCULAR VOLUME 85 fL (82-100); MONOCYTES # (AUTO) 0.5 /CMM (0.1-1.30); MONOCYTES % (AUTO) 8.3 % (2.0-12.0); NEUTROPHILS # (AUTO) 4.1 /CMM (1.8-8.9); NEUTROPHILS % (AUTO) 68.2 % (43.0-81.0); PLATELET COUNT (AUTO) 391 /CMM (150-450); RED BLOOD CELL COUNT(AUTO) 4.17 MIL/uL (4.0-5.2)
[2020-01-01] MEDS: BLOOD SUGAR DIAGNOSTIC 1 EACH STRIP IN SCH ×4 (06:30→21:29)
[2020-01-01] MEDS: INSULIN REGULAR, HUMAN 100 UNIT/ML 3 ML VIAL SQ PRN ×4 (06:31→21:29)
--- NOTE | 2020-01-01 06:32 | NUR ---
COUPON CLERK CLOSING NOTES PATIENT'S BLOOD GLUCOSE 154. PATIENT REFUSED 2 UNITS OF REGULAR INSULIN COVERAGE
--- NOTE | 2020-01-01 06:33 | NUR ---
TRANSVERSE ABDOMINAL MUSCLE SURGEON CLOSING NOTES PATIENT SLEEPING, EASY TO AWAKEN. A/OX4. ON 2L NC; NO S/S OF ACUTE RESPIRATORY DISTRESS; BREATHING IS EVEN AND UNLABORED. NO S/S OF PAIN NOTED. TELE MONITOR READING NSR WITH A-PACING, HEART RATE 70. MIDLINE PRESENT ON LEFT UPPER ARM, INTACT & PATENT, HEP LOCKED AT THIS TIME. SAFETY MEASURES IN PLACE AND PATIENT'S NEEDS MET. BED LOCKED, HOB ELEVATED, SIDE RAILS X2, CALL LIGHT WITHIN REACH. WILL ENDORSE TO DAY SHIFT RN PLAN OF CARE.
[2020-01-01 06:49] LABS: ALBUMIN 2.7 g/dL (3.4-5.0); BILIRUBIN,DIRECT 0.2 mg/dL (0.0-0.2); BILIRUBIN,TOTAL 0.5 mg/dL (0.2-1.0); CALCIUM, SERUM 8.5 mg/dL (8.5-10.1); CREATININE 0.6 mg/dL (0.6-1.3); POTASSIUM 3.8 mmol/L (3.5-5.1); TOTAL PROTEIN, SERUM 6.8 g/dL (6.4-8.2)
--- NOTE | 2020-01-01 07:46 | NUR ---
CLAMPER OPEN NOTES PATIENT A/O X 4 ON 2L OF HUMIDIFIER NASAL CANNULA WITH NO SIGNS OF DISTRESS, NO COMPLAIN OF PAIN AT THIS MOMENT. MID LINE L UA INTACT. JOE CATH INTACT. TELE MONITOR NSR WITH A-PACING 70'S. NO COMPLAIN OF PAIN AT THIS MOMENT. SAFETY MEASURES ARE BEING APPLIED, BED IS IN LOW AND LOCKED POSITION, SIDE RAILS UP X 2, CALL LIGHT WITHIN REACH. WILL CONTINUE TO MONITOR.
[2020-01-01] MEDS: MAGNESIUM OXIDE 400 MG TABLET PO SCH (08:35)
[2020-01-01] MEDS: ZINC SULFATE 220 MG CAPSULE PO SCH (08:35)
[2020-01-01] MEDS: METFORMIN 500 MG TABLET PO SCH ×2 (08:35→17:04)
[2020-01-01] MEDS: LIPASE/PROTEASE/AMYLASE 1 EACH CAPSULE.DR PO SCH ×3 (08:35→17:04)
[2020-01-01] MEDS: DULOXETINE HCL 30 MG CAPSULE.DR PO SCH (08:35)
[2020-01-01] MEDS: CARVEDILOL 6.25 MG TABLET PO SCH ×2 (08:36→21:14)
[2020-01-01] MEDS: LOSARTAN POTASSIUM 50 MG TABLET PO SCH ×2 (08:36→17:05)
[2020-01-01] MEDS: ESCITALOPRAM OXALATE (10 MG) 10 MG TABLET PO SCH (08:36)
[2020-01-01] MEDS: DEXAMETHASONE SOD PHOSPHATE 10 MG/ML VIAL IV SCH (08:37)
[2020-01-01] MEDS: APIXABAN 5 MG TABLET PO SCH ×2 (08:38→17:11)
[2020-01-01] MEDS: ASPIRIN EC 81 MG TABLET.DR PO SCH (08:39)
[2020-01-01] MEDS: PANTOPRAZOLE 40 MG TABLET.DR PO SCH (08:40)
[2020-01-01] MEDS: ONDANSETRON HCL/PF 4 MG/2 ML VIAL IVP PRN (12:09)
--- NOTE | 2020-01-01 18:48 | NUR ---
IP COUNSEL CLOSING NOTES PATIENT A/O X 4 ON 1L OF HUMIDIFIER NASAL CANNULA SPO2 94%, WITH NO SIGNS OF DISTRESS, NO COMPLAIN OF PAIN AT THIS MOMENT. MID LINE L UA INTACT. JOE CATH INTACT. TELE MONITOR SR 70. PATIENT KEPT CLEAN AND DRY. ALL NEEDS, CARE, TREATMENT AND MEDICATIONS ADMINISTERED ANTICIPATED PER ORDER. SAFETY MEASURES ARE APPLIED BED IS IN LOW AND LOCKED POSITION, SIDE RAILS UP X 2. CALL LIGHT WITHIN REACH, WILL ENDORSE TO THE NEXT STRAND AND BINDER CONTROLLER. Addendum: 01/01/20 at 1900 by IDALMIS PETERSEN RN IP COUNSEL CLOSING NOTES PATIENT A/O X 4 ON 1L OF HUMIDIFIER NASAL CANNULA SPO2 94%, WITH NO SIGNS OF DISTRESS, NO COMPLAIN OF PAIN AT THIS MOMENT. MID LINE L UA INTACT. JOE CATH INTACT. TELE MONITOR ATRIAL PACING SR 70. PATIENT KEPT CLEAN AND DRY. ALL NEEDS, CARE, TREATMENT AND MEDICATIONS ADMINISTERED ANTICIPATED PER ORDER. SAFETY MEASURES ARE APPLIED BED IS IN LOW AND LOCKED POSITION, SIDE RAILS UP X 2. CALL LIGHT WITHIN REACH, WILL ENDORSE TO THE NEXT STRAND AND BINDER CONTROLLER.
--- NOTE | 2020-01-01 19:00 | NUR ---
TONGUE TRIMMER OPENING NOTES RECEIVED PATIENT IN BED AWAKE ALERT AND ORIENTED X4,ON 1L VIA NC TOLERATING WELL, NO RESPIRATORY DISTRESS PRESENT, RESPIRATIONS EVEN AND UNLABORED WITH EQUAL RISE AND FALL OF CHEST, DENIES ANY PAIN AT THIS TIME, JOE CATHETER INTACT AND DRAINING WELL URINE YELLOW, BODY ASSESSMENT DONE SKIN INTACT, ON CARIDAC MONITOR ATRIAL PACING 70. LEFT UPPER MIDLINE INTACT AND PATENT, NO REDNESS, NO INFILTRATION , DRESSING IS C/D/I.ORIENTED TO STAFF AND CALL LIGHT AND KEPT WITHIN REACH.LOW BED AND LOCKED, ALL NEEDS ATTENDED WILL CONTINUE TO MONITOR AND ATTEND TO NEEDS.
[2020-01-01] MEDS: ATORVASTATIN 40 MG TABLET PO SCH (21:14)
[2020-01-01] MEDS: GUAIFENESIN/D-METHORPHAN HB 5 ML UDC PO PRN (21:14)
--- NOTE | 2020-01-01 21:14 | NUR ---
vehicle return associate notes noted patient with non productive cough, offered cough medicine robitussin prn patient agreed prn given will continue to monitor for effectiveness.
[2020-01-02] MEDS: IPRATROPIUM BROMIDE 14 GM INHALER (or 12.9 GM) IH SCH ×4 (00:05→17:12)
[2020-01-02 00:37] VITALS: BP 160/86
[2020-01-02 04:00] VITALS: BP 110/59
[2020-01-02 04:58] VITALS: BP 110/59
[2020-01-02] MEDS: BLOOD SUGAR DIAGNOSTIC 1 EACH STRIP IN SCH ×4 (06:13→21:32)
[2020-01-02] MEDS: INSULIN REGULAR, HUMAN 100 UNIT/ML 3 ML VIAL SQ PRN ×4 (06:13→21:34)
--- NOTE | 2020-01-02 06:51 | NUR ---
WINDOW SHADE ESTIMATOR CLOSING NOTES PATIENT IN BED AWAKE ALERT AND ORIENTED X4,ON 1L VIA NC TOLERATING WELL, NO RESPIRATORY DISTRESS PRESENT, RESPIRATIONS EVEN AND UNLABORED WITH EQUAL RISE AND FALL OF CHEST, DENIES ANY PAIN AT THIS TIME, JOE CATHETER INTACT AND DRAINING WELL URINE YELLOW, BODY ASSESSMENT DONE SKIN INTACT, ON CARIDAC MONITOR ATRIAL PACING 72. LEFT UPPER MIDLINE INTACT AND PATENT, NO REDNESS, NO INFILTRATION , DRESSING IS C/D/I. CALL LIGHT KEPT WITHIN REACH.LOW BED AND LOCKED, ALL NEEDS ATTENDED WILL CONTINUE TO MONITOR AND ATTEND TO NEEDS AND ENDORSE TO NEXT SHIFT, PATIENT REFUSED INSULIN PER SLIDING SCALE DESPITE EDUCATION.
--- NOTE | 2020-01-02 07:43 | NUR ---
RN OPENING NOTES RECEIVED PATIENT IN BED AWAKE ALERT AND ORIENTED X4,ON 1L VIA NC TOLERATING WELL, NO RESPIRATORY DISTRESS PRESENT, RESPIRATIONS EVEN AND UNLABORED . DENIES ANY PAIN AT THIS TIME, JOE CATHETER INTACT AND DRAINING WELL ON CARIDAC MONITOR ATRIAL PACING 72. LEFT UPPER MIDLINE INTACT AND PATENT, NO REDNESS, NO INFILTRATION , DRESSING IS C/D/I. CALL LIGHT KEPT WITHIN REACH.LOW BED AND LOCKED, ALL NEEDS ATTENDED WILL CONTINUE TO MONITOR AND SAFETY PRECAUTIONS IN PLACE. BED LOCKED AND IN LOS POSITION SIDE RAILS UP X2. BED ALARM ON. CALL LIGHT WITHIN REACH.
[2020-01-02 07:49] LABS: BASOPHILS % (AUTO) 0.4 % (0.0-2.0); EOSINOPHILS % (AUTO) 2.4 % (0.0-6.0); HEMATOCRIT 36 % (33-45); HEMOGLOBIN 11.9 g/dL (11.5-14.8); LYMPHOCYTES # (AUTO) 1.3 /CMM (0.8-4.8); LYMPHOCYTES % (AUTO) 19.7 % (20.0-44.0); MEAN CORPUSCULAR HGB CONC 33 g/dl (31.0-36.0); MEAN CORPUSCULAR VOLUME 86 fL (82-100); MONOCYTES # (AUTO) 0.6 /CMM (0.1-1.30); NEUTROPHILS # (AUTO) 4.5 /CMM (1.8-8.9); NEUTROPHILS % (AUTO) 68.5 % (43.0-81.0); PLATELET COUNT (AUTO) 408 /CMM (150-450); RED BLOOD CELL COUNT(AUTO) 4.22 MIL/uL (4.0-5.2); WHITE BLOOD COUNT (AUTO) 6.6 K/uL (4.3-11.0)
[2020-01-02 08:00] VITALS: BP 109/68
[2020-01-02 08:03] LABS: CALCIUM, SERUM 8.8 mg/dL (8.5-10.1); CREATININE 0.6 mg/dL (0.6-1.3); POTASSIUM 3.9 mmol/L (3.5-5.1)
[2020-01-02] MEDS: METFORMIN 500 MG TABLET PO SCH ×2 (08:23→16:10)
[2020-01-02] MEDS: PANTOPRAZOLE 40 MG TABLET.DR PO SCH (08:23)
[2020-01-02] MEDS: ZINC SULFATE 220 MG CAPSULE PO SCH (08:23)
[2020-01-02] MEDS: MAGNESIUM OXIDE 400 MG TABLET PO SCH (08:23)
[2020-01-02] MEDS: ESCITALOPRAM OXALATE (10 MG) 10 MG TABLET PO SCH (08:23)
[2020-01-02] MEDS: LIPASE/PROTEASE/AMYLASE 1 EACH CAPSULE.DR PO SCH ×3 (08:23→17:09)
[2020-01-02] MEDS: ASPIRIN EC 81 MG TABLET.DR PO SCH (08:23)
[2020-01-02] MEDS: DEXAMETHASONE SOD PHOSPHATE 10 MG/ML VIAL IV SCH (08:23)
[2020-01-02] MEDS: APIXABAN 5 MG TABLET PO SCH ×2 (08:24→16:11)
[2020-01-02] MEDS: CARVEDILOL 6.25 MG TABLET PO SCH ×2 (08:24→21:22)
[2020-01-02] MEDS: LOSARTAN POTASSIUM 50 MG TABLET PO SCH ×2 (08:25→16:10)
[2020-01-02] MEDS: DULOXETINE HCL 30 MG CAPSULE.DR PO SCH (08:30)
[2020-01-02] MEDS ORDERED: ERGOCALCIFEROL (VITAMIN D 2) 50,000 UNIT CAPSULE PO SCH (09:00)
--- NOTE | 2020-01-02 10:30 | NUR ---
PT WAS TITRATED OFF O2. PT SATURATING AT 94-95% ON ROOM AIR.
--- NOTE | 2020-01-02 12:47 | NUR ---
JOE CATH REMOVED PER DR. RUCKER ORDERS. WILL MONITOR FOR URINE OUTPUT.
[2020-01-02 16:00] VITALS: BP 127/56
--- NOTE | 2020-01-02 17:46 | NUR ---
PT VOIDED ALREADY 5X TODAY SINCE JOE WAS DISCONTINUED AT 1247. PT WAS ALSO AMBULATING TO THE BATHROOM WITH THE CANE.
--- NOTE | 2020-01-02 19:28 | NUR ---
RN CLOSING NOTES RECEIVED PATIENT IN BED AWAKE ALERT AND ORIENTED X4, NO RESPIRATORY DISTRESS PRESENT, RESPIRATIONS EVEN AND UNLABORED . SATURATING WELL ON ROOM AIR. DENIES ANY PAIN AT THIS TIME, CONTINENT OF B/B. PT WAS VOIDINGTHROUGHOUT THE DAY AFTER JOE CATH WAS DISCONTINUED. CARIDAC MONITOR ATRIAL PACING 72. LEFT UPPER MIDLINE INTACT AND PATENT, NO REDNESS, NO INFILTRATION , DRESSING IS C/D/I. CALL LIGHT KEPT WITHIN REACH.LOW BED AND LOCKED, ALL NEEDS ATTENDED WILL CONTINUE TO MONITOR AND SAFETY PRECAUTIONS IN PLACE. BED LOCKED AND IN LOS POSITION SIDE RAILS UP X2. BED ALARM ON. CALL LIGHT WITHIN REACH.
--- NOTE | 2020-01-02 19:46 | NUR ---
RN OPENING NOTES PATIENT RECEIVED RESTING IN BED A/O X 4. STABLE ON RA WITH BREATHING EVEN AND UNLABORED, NO SOB NOTED. NO SIGNS OF ACUTE DISTRESS. NO COMPLAINTS OF PAIN OR DISCOMFORT AT THE MOMENT. TELE MONITOR RADING A PACING 70. ROSANGELA MIDLINE NOTED AND IN PLACE. SAFETY PRECAUTIONS IN PLACE WITH BED IN LOWEST POSITION, CALL LIGHT WITHIN REACH, BREAKS ON, SIDE RAILS UP. WILL CONTINUE TO MONITOR THROUGHOUT THE NIGHT.
[2020-01-02 20:00] VITALS: BP 128/72
[2020-01-02] MEDS: ATORVASTATIN 40 MG TABLET PO SCH (21:22)
[2020-01-03] VITALS: BP 122/68
[2020-01-03 04:00] VITALS: BP 119/66
[2020-01-03] MEDS: IPRATROPIUM BROMIDE 14 GM INHALER (or 12.9 GM) IH SCH ×3 (06:24→12:14)
[2020-01-03] MEDS: BLOOD SUGAR DIAGNOSTIC 1 EACH STRIP IN SCH ×2 (06:39→12:13)
--- NOTE | 2020-01-03 06:39 | NUR ---
RN NOTES PATIENT FSBS 158, REFUSED INSULIN. PATIENT REFUSED INSULIN DESPITE EDUCATION OF BENEFITS, PATIENT STATES SHE "DOES NOT NEED IT" BECAUSE SHE TAKES METFORMIN. WILL CONTINUE TO MONITOR.
--- NOTE | 2020-01-03 06:56 | NUR ---
RN CLOSING NOTES PATIENT RESTING IN BED A/O X 4. STABLE ON RA WITH BREATHING EVEN AND UNLABORED, NO SOB NOTED. NO SIGNS OF ACUTE DISTRESS. NO COMPLAINTS OF PAIN OR DISCOMFORT AT THE MOMENT. TELE MONITOR READING A PACING. ROSANGELA MIDLINE NOTED AND IN PLACE. SAFETY PRECAUTIONS IN PLACE WITH BED IN LOWEST POSITION, CALL LIGHT WITHIN REACH, BREAKS ON, SIDE RAILS UP. ALL NEEDS ATTENDED TO. WILL ENDORSE TO ONCOMING SHIFT ABOUT CAMACHO.
[2020-01-03 07:21] LABS: BASOPHILS # (AUTO) 0.1 /CMM (0.0-0.2); BASOPHILS % (AUTO) 0.8 % (0.0-2.0); EOSINOPHILS % (AUTO) 1.5 % (0.0-6.0); HEMATOCRIT 37 % (33-45); HEMOGLOBIN 12.2 g/dL (11.5-14.8); LYMPHOCYTES # (AUTO) 1.8 /CMM (0.8-4.8); LYMPHOCYTES % (AUTO) 22.3 % (20.0-44.0); MEAN CORPUSCULAR HGB CONC 33 g/dl (31.0-36.0); MEAN CORPUSCULAR VOLUME 85 fL (82-100); MONOCYTES # (AUTO) 0.6 /CMM (0.1-1.30); NEUTROPHILS # (AUTO) 5.4 /CMM (1.8-8.9); NEUTROPHILS % (AUTO) 67.4 % (43.0-81.0); PLATELET COUNT (AUTO) 411 /CMM (150-450); RED BLOOD CELL COUNT(AUTO) 4.29 MIL/uL (4.0-5.2)
[2020-01-03 07:39] LABS: CALCIUM, SERUM 8.9 mg/dL (8.5-10.1); CREATININE 0.7 mg/dL (0.6-1.3); POTASSIUM 3.7 mmol/L (3.5-5.1)
[2020-01-03] MEDS: LIPASE/PROTEASE/AMYLASE 1 EACH CAPSULE.DR PO SCH ×2 (07:49→12:13)
[2020-01-03] MEDS: PANTOPRAZOLE 40 MG TABLET.DR PO SCH (07:50)
--- NOTE | 2020-01-03 07:50 | NUR ---
RN Opening Note Received patient in bed, AO x 4, able to responds all stimuli, denies no appears pain or discomfort. Respiratory even and unlabored on room air, no distress or SOB observed. Skin is warm to touch keep clean/dry intact midline site on left upper arm. Kept locked bed with elevated HOB for ensure airway and aspiration precaution and lowest position for safety. Call light within reach, will continue to monitor.
[2020-01-03 08:00] VITALS: BP 121/72
[2020-01-03] MEDS: METFORMIN 500 MG TABLET PO SCH (09:00)
[2020-01-03] MEDS: ZINC SULFATE 220 MG CAPSULE PO SCH (09:00)
[2020-01-03] MEDS: DULOXETINE HCL 30 MG CAPSULE.DR PO SCH (09:00)
[2020-01-03] MEDS: ESCITALOPRAM OXALATE (10 MG) 10 MG TABLET PO SCH (09:00)
[2020-01-03] MEDS: CARVEDILOL 6.25 MG TABLET PO SCH (09:00)
[2020-01-03] MEDS: MAGNESIUM OXIDE 400 MG TABLET PO SCH (09:00)
[2020-01-03] MEDS: ASPIRIN EC 81 MG TABLET.DR PO SCH (09:01)
[2020-01-03] MEDS: DEXAMETHASONE SOD PHOSPHATE 10 MG/ML VIAL IV SCH (09:01)
[2020-01-03] MEDS: LOSARTAN POTASSIUM 50 MG TABLET PO SCH (09:01)
[2020-01-03] MEDS: APIXABAN 5 MG TABLET PO SCH (09:02)
[2020-01-03 12:00] VITALS: BP 124/69
[2020-01-03] MEDS: INSULIN REGULAR, HUMAN 100 UNIT/ML 3 ML VIAL SQ PRN (12:13)
--- NOTE | 2020-01-03 16:52 | NUR ---
Patient discharge to home, given instruction DTR/Bibi and verbally understand. Pt denies respiratory distress O2sat 96% on room air, in stable condition.
== END 2020-01-03 16:52 | disposition home health service (06) | DRG 177 ==
LOC: ER 06:45 → ICU 08:59 → TELE2 12-29 16:29
PROVIDERS: ADMIT Family Medicine; ATTEND Internal Medicine
PROC: 30233L1 Transfusion of Nonautologous Fresh Plasma into Peripheral Vein, Percutaneous Approach (ICD-10-PCS; principal; 2019-12-27)
PROC: 05HY33Z Insertion of Infusion Device into Upper Vein, Percutaneous Approach (ICD-10-PCS; 2020-01-02)
DX: U07.1 COVID-19 (principal); J96.01 Acute respiratory failure with hypoxia; J12.89 Other viral pneumonia; I50.33 Acute on chronic diastolic (congestive) heart failure; J44.0 Chronic obstructive pulmonary disease with (acute) lower respiratory infection; E44.0 Moderate protein-calorie malnutrition; I11.0 Hypertensive heart disease with heart failure; I48.91 Unspecified atrial fibrillation; I25.10 Atherosclerotic heart disease of native coronary artery without angina pectoris; E78.5 Hyperlipidemia, unspecified; Z79.82 Long term (current) use of aspirin; Z79.51 Long term (current) use of inhaled steroids; Z79.899 Other long term (current) drug therapy; Z79.4 Long term (current) use of insulin; E66.01 Morbid (severe) obesity due to excess calories; G47.33 Obstructive sleep apnea (adult) (pediatric); Z95.0 Presence of cardiac pacemaker; E11.65 Type 2 diabetes mellitus with hyperglycemia; Z82.49 Family history of ischemic heart disease and other diseases of the circulatory system; Z83.3 Family history of diabetes mellitus
CPT/HCPCS: 36415; 36600; 71045-TC; 80048-TC; 80053-TC; 80061-TC; 80076-TC; 82550-TC; 82553; 82728-TC; 82803-TC; 82962-TC; 83605-TC; 83615-TC; 83735-TC; 83880; 84100-TC; 84484-TC; 85025-TC; 85378-TC; 85385-TC; 85610-TC; 85730-TC; 86140-TC; 86850-TC; 87040-TC; 87081-TC; 94799-TC; G0378; J1100; J1650; J1815; J1940; J2405; J7040; J7050; P9017-BL; U0003